=== PATIENT | female | born 1940 | race Caucasian/White ===

== ENCOUNTER 2017-01-28 19:01 | Inpatient (IN) | payer OTHER ==
[2017-01-28] MEDS ORDERED: ASPIRIN 81 MG CHEWABLE TABLETS PO ONE (20:46)
--- NOTE | 2017-01-28 20:53 | PDOC ---
History of Present Illness <Sharon Sellers - Last Filed: 01/28/17 23:55> - General History Source: Patient - History of Present Illness Initial Comments: 01/28/17 20:53 76 year c/o epigastric pain and SOB x 1 week that is progressively worsening. pain worse with movement and laying down. denies NVD, diaphoresis, chest pain, headache. PCP: none [previously [facility] Cardiology: Dr. Webb <Morenita Lutz - Last Filed: 01/29/17 06:09> - General Chief Complaint: Chest Pain Stated Complaint: SOB/CHEST PAIN Time Seen by Provider: 01/28/17 20:37 Past History <Sharon Sellers - Last Filed: 01/28/17 23:55> - Past Medical History HTN: Yes Hypercholesterolemia: Yes - Surgical History Appendectomy: Yes Cholecystectomy: Yes - Psycho/Social/Smoking Cessation Hx Anxiety: No Suicidal Ideation: No Smoking History: Current every day smoker Years of Tobacco Use: 62 (quit 1 week ago) Have you smoked in the past 12 months: Yes Number of Cigarettes Smoked Daily: 20 Information on smoking cessation initiated: No Hx Alcohol Use: No Drug/Substance Use Hx: No Substance Use Type: None Hx Substance Use Treatment: No <Morenita Lutz - Last Filed: 01/29/17 06:09> - Past Medical History Allergies/Adverse Reactions: Allergies Allergy/AdvReac Type Severity Reaction Status Date / Time No Known Drug Allergies Allergy Verified 01/28/17 20:54 NEBULIZER [place] Allergy Severe TONGUE Uncoded 01/28/17 19:13 SWELLING PEPPERS Allergy Uncoded 01/28/17 19:13 Home Medications: Ambulatory Orders Amlodipine Besylate 5 mg PO DAILY 01/28/17 Gabapentin 300 mg PO BID 01/28/17 Gemfibrozil 600 mg PO BID 01/28/17 Nebivolol HCl [Bystolic] 10 mg PO DAILY 01/28/17 Review of Systems - Review of Systems Able to Perform ROS?: Yes Is the patient limited Bulgarian proficient: No Constitutional: No: Symptoms Reported, See HPI, Chills, Diaphoresis, Fever, Loss of Appetite, Malaise, Night Sweats, Weakness, Weight Stable, Unintentional Wgt. Loss, Unexplained wgt Loss, Other Respiratory: Yes: Cough, SOB with Exertion ABD/GI: Yes: Other (epigastric pain) <Morenita Lutz - Last Filed: 01/29/17 06:09> *Physical Exam - Vital Signs Last Vital Signs Temp Pulse Resp BP Pulse Ox 98.1 F 71 24 144/92 97 01/28/17 19:07 01/28/17 19:07 01/28/17 19:07 01/28/17 19:07 01/28/17 19:07 <Sharon Sellers - Last Filed: 01/28/17 23:55> - Vital Signs Last Vital Signs Temp Pulse Resp BP Pulse Ox 98.1 F 71 24 144/92 97 01/28/17 19:07 01/28/17 19:07 01/28/17 19:07 01/28/17 19:07 01/28/17 19:07 - Physical Exam General Appearance: Yes: Appropriately Dressed Respiratory/Chest: positive: Wheezing Cardiovascular: positive: Regular Rhythm, Regular Rate. negative: Murmur Gastrointestinal/Abdominal: positive: Normal Bowel Sounds, Tender (epigastric area), Soft Extremity: positive: Normal Capillary Refill, Normal Inspection, Normal Range of Motion Integumentary: positive: Normal Color, Dry, Warm Neurologic: positive: Fully Oriented, Alert, Normal Mood/Affect <Morenita Lutz - Last Filed: 01/29/17 06:09> Heart Score/ECG Review - History History: Highly suspicious - Electrocardiogram EKG: Normal - Age Age: >/= 65 - Risk Factors Risk Factors Heart Score: Yes Hx Hypercholesterolemia, Yes Hx Hypertension, Yes Smoking History Based on the list above the patient has:: >/=3 risk factors or Hx atherosclerotic disease - Troponin Troponin: >/=3x normal limit - Score Heart Score - Total: 8 - ECG Intrepretation Rhythm: Regular Rhythm Comment:: 01/29/17 00:45 NSR: [address] abnormality <Morenita Lutz - Last Filed: 01/29/17 06:09> ED Treatment Course - LABORATORY CBC & Chemistry Diagram: 01/28/17 21:09 01/28/17 21:09 - ADDITIONAL ORDERS Additional order review: Laboratory Results 01/28/17 01/28/17 01/28/17 21:51 21:09 21:09 Sodium 138 Potassium 3.9 Chloride 105 Carbon Dioxide 24 Anion Gap 9 BUN 26 H Creatinine 1.1 H Creat Clearance w eGFR 48.55 Random Glucose 102 Calcium 8.9 Magnesium 2.6 H Total Bilirubin 0.3 AST 31 ALT 26 Alkaline Phosphatase 135 H Creatine Kinase 248 H Troponin I 2.39 H* Total Protein 7.0 Albumin 3.4 Lipase 123 Urine Color Straw Urine Appearance Clear Urine pH 5.0 Urine Protein Negative Urine Glucose (UA) Negative Urine Ketones Negative Urine Blood 1+ H Urine Nitrite Negative Urine Bilirubin Negative Urine Urobilinogen Negative Ur Leukocyte Esterase 2+ H Urine RBC 1 Urine WBC 12 Ur Epithelial Cells Rare Urine Mucus Rare 01/28/17 21:09 RBC 3.64 MCV 90.1 MCHC 33.4 RDW 14.1 MPV 9.4 Neutrophils % 67.9 Lymphocytes % 21.3 Monocytes % 6.4 Eosinophils % 3.4 Basophils % 1.0 - Medications Given in the ED: ED Medications Discontinued Medications Generic Name Dose Route Start Last Admin Trade Name Freq PRN Reason Stop Dose Admin Albuterol Sulfate 1 amp 01/28/17 21:10 01/28/17 21:51 Ventolin 0.083% Nebulizer Soln - NEB 01/28/17 21:11 1 amp ONCE ONE Administration Aspirin 162 mg 01/28/17 20:46 01/28/17 21:25 Asa - PO 01/28/17 20:47 162 mg ONCE ONE Administration Famotidine/Sodium Chloride 50 mls @ 100 mls/hr 01/28/17 21:10 01/28/17 21:51 Pepcid 20 Mg Premixed Ivpb - IVPB 01/28/17 21:39 100 mls/hr ONCE ONE Administration <Sharon Sellers - Last Filed: 01/28/17 23:55> - LABORATORY CBC & Chemistry Diagram: 01/28/17 21:09 01/28/17 21:09 <Morenita Lutz - Last Filed: 01/29/17 06:09> Progress Note - Progress Note Progress Note: A: chest pain/ epigastric pain/ NSTEMI P: cbc cmp troponin UA EKG. cardiology consult <Morenita Lutz - Last Filed: 01/29/17 06:09> Medical Decision Making - Medical Decision Making 01/28/17 22:[address] Teddy Castellon. [phone] 01/28/17 23:19 Placed a second call to Dr. Teddy Castellon. [phone] 01/28/17 23:43 Placed a third call to Dr. Teddy Castellon. [phone] <Sharon Sellers - Last Filed: 01/28/17 23:55> - Critical Care Time Total Critical Care Time (minutes): 90 Critical Care Statement: The care of this patient involved high complexity decision making to prevent further life threatening deterioration of the patient 's condition and/or to evalute & treat vital organ system(s) failure or risk of failure. - Medical Decision Making 01/29/17 00:17 Patient is nauseous with agitation, diaphoretic, flushed, with epigastric pain worsening. Dr. Dave pagesoraya. Dr. lawanda dong 01/29/17 00:[address] Chen. recommends Heparin IV drip, Nitroglycerin IV drip lipitor 80mg and plavix 300mg. [employer] Edwiny in ICU contacted. signed out fo rICU admission. 01/29/17 00:41 Dr. Lnidsay dong. 01/29/17 00:55 Dr. castellon recommends IV lopressor 5 mg x1, then lopressor 25 BID. and trend troponin Patient to be admitted to ICU for further management of care. patient signed out to Dr. Be <Morenita Lutz - Last Filed: 01/29/17 06:09> *DC/Admit/Observation/Transfer <Sharon Sellers - Last Filed: 01/28/17 23:55> - Discharge Dispostion Admit: Yes <Morenita Lutz - Last Filed: 01/29/17 06:09> Diagnosis at time of Disposition: NSTEMI (non-ST elevated myocardial infarction), Cardiomegaly Hypertension Qualifiers: Hypertension type: essential hypertension Qualified Code(s): I10 - Essential ( primary) hypertension - Discharge Dispostion Condition at time of disposition: Fair
[2017-01-28] MEDS ORDERED: FAMOTIDINE 20 MG/50 ML IVPB 50 ML IVPB ONE ×2 (21:10→21:33)
[2017-01-28] MEDS ORDERED: ALBUTEROL SO4 0.083% IH SOL 2.5 MG/3 ML VIAL.NEB. NEB ONE (21:10)
[2017-01-28 21:24] LABS: EOSINOPHIL 3.4 % (0-4.5); MCH 30.1 pg (25.7-33.7); MCHC 33.4 g/dl (32.0-36.0); MEAN CELL VOLUME 90.1 fl (80-96); MEAN PLT VOLUME 9.4 fl (7.5-11.1); NEUTROPHILS 67.9 % (42.8-82.8); PLATELET COUNT 236 K/MM3 (134-434); RDW 14.1 % (11.6-15.6); WHITE BLOOD COUNT 7.9 K/mm3 (4.0-10.0)
[2017-01-28] MEDS ORDERED: ASPIRIN 81 MG CHEWABLE TABLETS ONE (21:24)
[2017-01-28 21:47] LABS: INR 1.05 (0.82-1.09); PROTHROMBIN TIME (PATIENT) 11.6 SEC (9.98-11.88)
[2017-01-28 21:58] LABS: URINE APPEARANCE CLEAR; URINE BILIRUBIN NEGATIVE (NEGATIVE); URINE BLOOD 1+ (NEGATIVE); URINE COLOR STRAW; URINE GLUCOSE (UA) NEGATIVE (NEGATIVE); URINE KETONE NEGATIVE (NEGATIVE); URINE NITRITE NEGATIVE (NEGATIVE); URINE PROTEIN NEGATIVE (NEGATIVE); URINE UROBILINOGEN NEGATIVE mg/dL (0.2-1.0)
[2017-01-28 21:59] LABS: URINE LEUK ESTERASE 2+ (NEGATIVE)
[2017-01-28 22:01] LABS: URINE MUCUS RARE; URINE RBC 1 /hpf (0-3); URINE WBC 12 /hpf (3-5)
[2017-01-28 22:03] LABS: ALBUMIN 3.4 g/dl (3.4-5.0); ANION GAP 9 (8-16); BILIRUBIN,TOTAL 0.3 mg/dL (0.2-1.0); CALCIUM 8.9 mg/dL (8.5-10.1); CO2 24 mmol/L (21-32); CREATININE 1.1 mg/dL (0.55-1.02); GLUCOSE,RANDOM 102 mg/dL (74-106); SGPT/ALT 26 U/L (12-78)
[2017-01-28 22:19] LABS: ALK PHOS 135 U/L (45-117); CPK 248 IU/L (26-192)
[2017-01-28 22:43] LABS: MAGNESIUM 2.6 mg/dL (1.8-2.4); SGOT/AST 31 U/L (15-37); TROPONIN I 2.39 ng/ml (0.00-0.05)
[2017-01-29] MEDS ORDERED: ONDANSETRON 4 MG/2 ML VIAL IVPUSH ONE (00:10)
[2017-01-29] MEDS ORDERED: ONDANSETRON 4 MG/2 ML VIAL ONE (00:13)
[2017-01-29] MEDS ORDERED: HEPARIN NA (PORCINE) 5,000 UNITS/ML 1ML VIAL IVPUSH PRN ×2 (00:24)
[2017-01-29] MEDS ORDERED: ATORVASTATIN CA 80 MG TABLET (FP) PO ONE (00:24)
[2017-01-29] MEDS ORDERED: CLOPIDOGREL BISULFATE 300 MG TABLET PO ONE ×3 (00:24→08:59)
[2017-01-29] MEDS ORDERED: HEPARIN - 25,000 UNIT in SODIUM CHLORIDE 495 ML IV SCH (00:30)
[2017-01-29] MEDS ORDERED: NITROGLYCERIN 25MG/D5W 250ML 250 ML IVPB SCH (00:30)
--- NOTE | 2017-01-29 00:34 | PDOC ---
*Physical Exam - Vital Signs Last Vital Signs Temp Pulse Resp BP Pulse Ox 98.1 F 71 24 144/92 97 01/28/17 19:07 01/28/17 19:07 01/28/17 19:07 01/28/17 19:07 01/28/17 19:07 ED Treatment Course - LABORATORY CBC & Chemistry Diagram: 01/28/17 21:09 01/28/17 21:09 - ADDITIONAL ORDERS Additional order review: Laboratory Results 01/28/17 01/28/17 01/28/17 21:51 21:09 21:09 Sodium 138 Potassium 3.9 Chloride 105 Carbon Dioxide 24 Anion Gap 9 BUN 26 H Creatinine 1.1 H Creat Clearance w eGFR 48.55 Random Glucose 102 Calcium 8.9 Magnesium 2.6 H Total Bilirubin 0.3 AST 31 ALT 26 Alkaline Phosphatase 135 H Creatine Kinase 248 H Troponin I 2.39 H* Total Protein 7.0 Albumin 3.4 Lipase 123 Urine Color Straw Urine Appearance Clear Urine pH 5.0 Urine Protein Negative Urine Glucose (UA) Negative Urine Ketones Negative Urine Blood 1+ H Urine Nitrite Negative Urine Bilirubin Negative Urine Urobilinogen Negative Ur Leukocyte Esterase 2+ H Urine RBC 1 Urine WBC 12 Ur Epithelial Cells Rare Urine Mucus Rare 01/28/17 21:09 RBC 3.64 MCV 90.1 MCHC 33.4 RDW 14.1 MPV 9.4 Neutrophils % 67.9 Lymphocytes % 21.3 Monocytes % 6.4 Eosinophils % 3.4 Basophils % 1.0 - Medications Given in the ED: ED Medications Discontinued Medications Generic Name Dose Route Start Last Admin Trade Name Ly PRN Reason Stop Dose Admin Albuterol Sulfate 1 amp 01/28/17 21:10 01/28/17 21:51 Ventolin 0.083% Nebulizer Soln - NEB 01/28/17 21:11 1 amp ONCE ONE Administration Aspirin 162 mg 01/28/17 20:46 01/28/17 21:25 Asa - PO 01/28/17 20:47 162 mg ONCE ONE Administration Famotidine/Sodium Chloride 50 mls @ 100 mls/hr 01/28/17 21:10 01/28/17 21:51 Pepcid 20 Mg Premixed Ivpb - IVPB 01/28/17 21:39 100 mls/hr ONCE ONE Administration Ondansetron HCl 4 mg 01/29/17 00:10 01/29/17 00:15 Zofran Injection IVPUSH 01/29/17 00:11 4 mg ONCE ONE Administration Medical Decision Making - Critical Care Time Total Critical Care Time (minutes): 60 Critical Care Statement: The care of this patient involved high complexity decision making to prevent further life threatening deterioration of the patient 's condition and/or to evalute & treat vital organ system(s) failure or risk of failure. - Medical Decision Making 01/29/17 00:32 76-year-old female presents with dyspnea, shortness of breath last week. However, today her dyspnea became worse and she developed epigastric pain. She now has shortness of breath and nausea. Her troponin came back positive at 2.39 and the case was discussed with Dr. Miles Chen. The patient will be placed in the ICU and is receiving IV heparin, Plavix, Lipitor *DC/Admit/Observation/Transfer Diagnosis at time of Disposition: Non-ST elevation (NSTEMI) myocardial infarction, Cardiomegaly Hypertension Qualifiers: Hypertension type: essential hypertension Qualified Code(s): I10 - Essential ( primary) hypertension - Discharge Dispostion Condition at time of disposition: Fair Admit: Yes
[2017-01-29] MEDS ORDERED: HEPARIN NA (PORCINE) 5,000 UNITS/ML 1ML VIAL ONE (00:40)
[2017-01-29] MEDS ORDERED: HEPARIN INFUSION - 500 ML IVPB ONE (00:40)
[2017-01-29] MEDS ORDERED: NITROGLYCERIN 25MG/D5W 250ML 250 ML IVPB ONE (00:40)
[2017-01-29] MEDS ORDERED: CLOPIDOGREL BISULFATE 300 MG TABLET ONE (00:41)
[2017-01-29] MEDS ORDERED: ATORVASTATIN CA 80 MG TABLET (FP) ONE (00:42)
--- NOTE | 2017-01-29 00:49 | PN ---
Teaching Attending Note Name of Resident: Suzette Gomes ATTENDING PHYSICIAN STATEMENT I saw and evaluated the patient. I reviewed the resident's note and discussed the case with the resident. I agree with the resident's findings and plan as documented. SUBJECTIVE: 76 F with pmhx of HTN, HLD and current smoker, who presents with epigastric pain and shortness of breath that is one week in duration. States that she was on vacation at the [place] 1 week ago when she had intermittent epigastric pain, not relieved by anything. Also had associated shortness of breath on exertion. OBJECTIVE: Physical: VS: Vital Signs Period Temp Pulse Resp BP Sys/[place] Pulse Ox Last 24 Hr 98.1 F 71 24 144/92 97 GEN: NAD, Resting in bed, able to speak full sentences HEENT: NCAT, PERRL, Throat without erythema or exudates CARD: RRR S1, S2 RESP: Mild Expiratory Wheezing bilateral ABD: BSX4, NTD to palpation EXT: - C/C/E CBCD WBC 7.9 K/mm3 (4.0-10.0) 01/28/17 21:09 RBC 3.64 M/mm3 (3.60-5.2) 01/28/17 21:09 Hgb 11.0 GM/dL (10.7-15.3) 01/28/17 21:09 Hct 32.8 % (32.4-45.2) 01/28/17 21:09 MCV 90.1 fl (80-96) 01/28/17 21:09 MCHC 33.4 g/dl (32.0-36.0) 01/28/17 21:09 RDW 14.1 % (11.6-15.6) 01/28/17 21:09 Plt Count 236 K/MM3 (134-434) 01/28/17 21:09 MPV 9.4 fl (7.5-11.1) 01/28/17 21:09 CMP Sodium 138 mmol/L (136-145) 01/28/17 21:09 Potassium 3.9 mmol/L (3.5-5.1) 01/28/17 21:09 Chloride 105 mmol/L (98-107) 01/28/17 21:09 Carbon Dioxide 24 mmol/L (21-32) 01/28/17 21:09 Anion Gap 9 (8-16) 01/28/17 21:09 BUN 26 mg/dL (7-18) H 01/28/17 21:09 Creatinine 1.1 mg/dL (0.55-1.02) H 01/28/17 21:09 Creat Clearance w eGFR 48.55 (>60) 01/28/17 21:09 Random Glucose 102 mg/dL (74-106) 01/28/17 21:09 Calcium 8.9 mg/dL (8.5-10.1) 01/28/17 21:09 Total Bilirubin 0.3 mg/dL (0.2-1.0) 01/28/17 21:09 AST 31 U/L (15-37) 01/28/17 21:09 ALT 26 U/L (12-78) 01/28/17 21:09 Alkaline Phosphatase 135 U/L (45-117) H 01/28/17 21:09 Total Protein 7.0 g/dl (6.4-8.2) 01/28/17 21:09 Albumin 3.4 g/dl (3.4-5.0) 01/28/17 21:09 CARDIAC ENZYMES Creatine Kinase 248 IU/L (26-192) H 01/28/17 21:09 Troponin I 2.39 ng/ml (0.00-0.05) H* 01/28/17 21:09 CXR: Cardiomegaly, pulm. venous congestion EKG: NSR 66, Nonspecific St-t changes Home Medications Medication Instructions Recorded Amlodipine Besylate 5 mg PO DAILY 01/28/17 Gabapentin 300 mg PO BID 01/28/17 Gemfibrozil 600 mg PO BID 01/28/17 Nebivolol HCl [Bystolic] 10 mg PO DAILY 01/28/17 HEART 7, TIMI3 EKG: NSR, Non-specific St-T changes ASSESSMENT AND PLAN: 76 F with pmhx of HTN, HLD, current smoker who presented with epigastric pain found to have a NSTEMI 1.) NSTEMI - ASA, Plavix, Hep gtt - 02 2L NC - Trend Trop/EKG - Metoprolol 25mg BID - Cardio consulted-appreciate reccs - Morphine/Nitro prn CP - Tele 2.) CHF - Echo - Hold off Lasix for now as BP is tenous - Strict I/O - NA restric/Fluid Restrict 3.) HTN - Metoprolol 3.) HLD - C/W Gemfibrozil- pt. cannot have Statin as per her due to allery - Chk. Lipid panel 5.) Dvt ppx - HEp gtt Place in ICU -CC Time 45 minutes
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
[2017-01-29] MEDS ORDERED: METOPROLOL TARTRATE 25 MG TABLET (FP) PO ONE (01:15)
[2017-01-29 01:27] LABS: TROPONIN I 2.47 ng/ml (0.00-0.05)
[2017-01-29] MEDS ORDERED: METOPROLOL TARTRATE 25 MG TABLET (FP) ONE (01:34)
--- NOTE | 2017-01-29 01:41 | HP ---
CHIEF COMPLAINT: epigastric pain x 7 days PCP: [facility] [employer] Treatment Operator: Chaundry HISTORY OF PRESENT ILLNESS: 76yo F with PMH of HTN, hypercholesterolemia, current smoker presents with epigastric pain x 7 days. Pt reports being away on vacation when the epigastric pain began last Friday. Pt believed pain to be heartburn so she took Gaviscon, which did not relieve the pain. Pain was 7/10 at its peak, squeezing/tight, non-radiating. Pt also c/o SOB with minimal exertion. Pt reported to ED with increased epigastric pain. ER course was notable for: (1) Troponins elevated (2) EKG (3) Heparin drip (4) Nitroglycerin drip (5) Aspirin 162 mg (6) Metoprolol Tartrate 25 mg (7) Clopidogrel Bisulfate 300 mg Recent Travel: [place] for 1 week PAST MEDICAL HISTORY: HTN, hypercholesterolemia PAST SURGICAL HISTORY: 2 sections, appendectomy, cholecystectomy Social History: Smokin ppd since age 18, 58 pack yr Alcohol: wine rarely, on holidays Drugs: none Family History: Family hx of afib. Father of colon cancer at age 65. Allergies Statins per pt. NEBULIZER [place] Allergy (Severe, Uncoded 01/28/17 19:13) TONGUE SWELLING PT DOES NOT RECALL NAME, REPORTS TONGUE SWELLING. PEPPERS Allergy (Uncoded 01/28/17 19:13) HOME MEDICATIONS: Home Medications Medication Instructions Recorded Amlodipine Besylate 5 mg PO DAILY 01/28/17 Gabapentin 300 mg PO BID 01/28/17 Gemfibrozil 600 mg PO BID 01/28/17 Nebivolol HCl [Bystolic] 10 mg PO DAILY 01/28/17 REVIEW OF SYSTEMS CONSTITUTIONAL: Absent: fever, chills, diaphoresis, generalized weakness, malaise, loss of appetite, weight change HEENT: Absent: rhinorrhea, nasal congestion CARDIOVASCULAR: Absent: chest pain, syncope, palpitations, irregular heart rate, lightheadedness , peripheral edema RESPIRATORY: (+) SOB with exertion Absent: cough, dyspnea with exertion, orthopnea, wheezing, stridor GASTROINTESTINAL: (+) epigastric pain Absent: abdominal distension, nausea, vomiting, diarrhea, constipation, melena, hematochezia MUSCULOSKELETAL: Absent: myalgia, arthralgia, joint swelling, back pain, neck pain SKIN: Absent: rash, itching, pallor HEMATOLOGIC/IMMUNOLOGIC: Absent: easy bleeding, easy bruising, lymphadenopathy, frequent infections ENDOCRINE: Absent: unexplained weight gain, unexplained weight loss, heat intolerance, cold intolerance NEUROLOGIC: Absent: focal weakness or paresthesias, dizziness, unsteady gait, seizure, mental status changes, bladder or bowel incontinence PHYSICAL EXAMINATION Vital Signs - 24 hr 01/28/17 01/29/17 01/29/17 19:07 00:45 01:10 Temperature 98.1 F Pulse Rate 71 Pulse Rate [ 66 65 Apical] Respiratory 24 16 18 Rate Blood Pressure 144/92 Blood Pressure 162/112 139/63 [Left Arm] O2 Sat by Pulse 97 100 94 L Oximetry (%) 01/29/17 01:58 Temperature 97.6 F Pulse Rate 65 Pulse Rate [ Apical] Respiratory 22 Rate Blood Pressure 126/46 Blood Pressure [Left Arm] O2 Sat by Pulse 96 Oximetry (%) CBCD WBC 7.9 K/mm3 (4.0-10.0) 01/28/17 21:09 RBC 3.64 M/mm3 (3.60-5.2) 01/28/17 21:09 Hgb 11.0 GM/dL (10.7-15.3) 01/28/17 21:09 Hct 32.8 % (32.4-45.2) 01/28/17 21:09 MCV 90.1 fl (80-96) 01/28/17 21:09 MCHC 33.4 g/dl (32.0-36.0) 01/28/17 21:09 RDW 14.1 % (11.6-15.6) 01/28/17 21:09 Plt Count 236 K/MM3 (134-434) 01/28/17 21:09 MPV 9.4 fl (7.5-11.1) 01/28/17 21:09 CMP Sodium 138 mmol/L (136-145) 01/28/17 21:09 Potassium 3.9 mmol/L (3.5-5.1) 01/28/17 21:09 Chloride 105 mmol/L (98-107) 01/28/17 21:09 Carbon Dioxide 24 mmol/L (21-32) 01/28/17 21:09 Anion Gap 9 (8-16) 01/28/17 21:09 BUN 26 mg/dL (7-18) H 01/28/17 21:09 Creatinine 1.1 mg/dL (0.55-1.02) H 01/28/17 21:09 Creat Clearance w eGFR 48.55 (>60) 01/28/17 21:09 Calcium 8.9 mg/dL (8.5-10.1) 01/28/17 21:09 Total Bilirubin 0.3 mg/dL (0.2-1.0) 01/28/17 21:09 AST 31 U/L (15-37) 01/28/17 21:09 ALT 26 U/L (12-78) 01/28/17 21:09 Alkaline Phosphatase 135 U/L (45-117) H 01/28/17 21:09 Total Protein 7.0 g/dl (6.4-8.2) 01/28/17 21:09 Albumin 3.4 g/dl (3.4-5.0) 01/28/17 21:09 Troponin, BNP 01/28/17 01/28/17 01/29/17 21:09 21:09 00:23 Troponin I 2.39 H* 2.47 H* B-Natriuretic Peptide 7244.33 H GENERAL: Awake, alert, and fully oriented, in no acute distress. HEAD: Normal with no signs of trauma. EYES: Pupils equal, round and reactive to light, sclera anicteric, conjunctiva clear. No lid lag. EARS, NOSE, THROAT: Ears normal, oropharynx clear without exudates. NECK: supple without lymphadenopathy, no JVD or masses. LUNGS: Breath sounds equal, clear to auscultation bilaterally. No wheezes, and no crackles. No accessory muscle use. HEART: Regular rate and rhythm, normal S1 and S2 without murmur, rub or gallop. ABDOMEN: Soft, nontender, not distended, normoactive bowel sounds, no guarding, no rebound, no masses. No hepatomegaly or splenomegaly. LOWER EXTREMITIES: 2+ pulses, warm, well-perfused. No calf tenderness. No peripheral edema. NEUROLOGICAL: Cranial nerves II-XII intact. Normal speech. PSYCHIATRIC: Cooperative. Good eye contact. Appropriate mood and affect. SKIN: Warm, dry, normal turgor, no rashes or lesions noted, normal capillary refill. IMAGIN01/28/[address] changes. 01/28/17 CXR reveals moderate cardiomegaly, mild pulmonary congestion, and minimal pleural effusion. 01/28/17 Duplex U/S negative for DVT. ASSESSMENT/PLAN: 76yo F with PMH of HTN, hypercholesterolemia, current smoker adm ICU for NSTEMI. (1) NSTEMI - clinically stable. HEART Score of 8. - cont. to trend Troponins q6h to peak - f/u echo - Cardiology Consult - cont. aspirin - cont. plavix - cont. heparin - cont. metoprolol - cont. O2 as needed (2) CHF - may be acute on chronic - restrict fluids - consider Lasix - monitor Creatinine (3) HTN - cont. Metoprolol (4) hypercholesterolemia - f/u lipid panel - cont Gemfibrozil (5) FEN - npo (6) Prophylaxis - SCDs for DVT prophylaxis (7) Disposition - adm to ICU Visit type - Emergency Visit Emergency Visit: Yes ED Registration Date: 01/29/17 Care time: The patient presented to the Emergency Department on the above date and was hospitalized for further evaluation of their emergent condition. - New Patient This patient is new to me today: Yes Date on this admission: 01/29/17 - Critical Care Critical Care patient: Yes Total Critical Care Time (in minutes): 40 Critical Care Statement: The care of this patient involved high complexity decision making to prevent further life threatening deterioration of the patient 's condition and/or to evalute & treat vital organ system(s) failure or risk of failure.
[2017-01-29 02:24] VITALS: BMI 40.0
--- NOTE | 2017-01-29 08:13 | PN ---
Physical Exam: SUBJECTIVE: 76 year old female with a past medical history of hypertension, hyperlipidemia, and smoking presented to the ED yesterday after 7 days of epigastric pain 8/10 in severity and shortness of breath at rest. She reports that the epigastric pain started when she was on vacation in October at the [place] after she finished smoking. She was unable to reach her PCP by phone. She believed at first that she was having heartburn, for which she took Gaviscon (an OTC antacid ) without any relief. When she arrived at the ED yesterday, she was found to have an NSTEMI with elevated trops (2.39) and an EKG with nonspecific changes. A chest xray was done, showing cardiomegaly, pulmonary changes, and minimal pleural effusion. In the ED, she was given heparin, metoprolol, aspirin, plavix , and transferred to the ICU for management of NSTEMI. OBJECTIVE: Vital Signs Period Temp Pulse Resp BP Sys/[place] Pulse Ox Last 24 Hr 97.6 F-98.6 F 50-65 18-22 122-147/46-65 94-96 GENERAL: The patient is awake, alert, and fully oriented, in no acute distress. HEAD: Normal with no signs of trauma. EYES: PERRL, extraocular movements intact, sclera anicteric, conjunctiva clear. No ptosis. ENT: Ears normal, nares patent, oropharynx clear without exudates, moist mucous membranes. NECK: Trachea midline, full range of motion, supple. LUNGS: Breath sounds equal, clear to auscultation bilaterally, no wheezes, no crackles, no accessory muscle use. HEART: Regular rate and rhythm, S1, S2 without murmur, rub or gallop. ABDOMEN: Soft, mild tenderness to palpation in the epigastrum, nondistended, normoactive bowel sounds, no guarding, no rebound, no hepatosplenomegaly, no masses. EXTREMITIES: 2+ pulses, warm, well-perfused, no edema. NEUROLOGICAL: Cranial nerves II through XII grossly intact. Normal speech, gait not observed. PSYCH: Normal mood, normal affect. SKIN: Warm, dry, normal turgor, no rashes or lesions noted Active Medications Generic Name Dose Route Start Last Admin Trade Name Freq PRN Reason Stop Dose Admin Chlorhexidine Gluconate 1 applic 01/29/17 22:00 Hibiclens For Decolonization - TP HS MAKAYLA Gabapentin 300 mg 01/29/17 10:00 Neurontin - PO BID MAKAYLA Gemfibrozil 600 mg 01/29/17 10:00 Lopid - PO BID MAKAYLA Heparin Sodium (Porcine) 1,000 unit 01/29/17 00:24 Heparin - IVPUSH PRN PRN Heparin Heparin Sodium (Porcine) 5,000 unit 01/29/17 00:24 Heparin - IVPUSH PRN PRN Heparin Heparin Sodium (Porcine) 25, 500 mls @ 20 mls/hr 01/29/17 00:30 01/29/17 01:04 000 unit/ Sodium Chloride IV 20 mls/hr TITR MAKAYLA Administration Protocol 1,000 UNIT/HR Nitroglycerin/Dextrose 250 mls @ 6 mls/hr 01/29/17 00:30 01/29/17 01:03 Nitroglycerin 25mg/D5w 250ml IVPB 6 mls/hr TITR MAKAYLA Administration 10 MCG/MIN Famotidine/Sodium Chloride 50 mls @ 100 mls/hr 01/29/17 10:00 Pepcid 20 Mg Premixed Ivpb - IVPB BID MAKAYLA Metoprolol Tartrate 25 mg 01/29/17 10:00 Lopressor - PO BID MAKAYLA Mupirocin 1 applic 01/29/17 10:00 Bactroban Ointment (For Decolonization) - NS 02/03/17 09:59 BID MAKAYLA Potassium Chloride 20 meq 01/29/17 08:00 K-Dur - PO 01/29/17 08:01 ONCE ONE Imaging: CXR (01/28): moderate cardiomegaly, mild pulmonary venous congestion, minimal bilateral pleural effusion EKG (01/29): sinus bradycardia, incomplete left bundle branch block ASSESSMENT/PLAN: 76 year old female with a past medical history of HTN, HLD, [id number] smoking hx being monitored in the ICU s/p NSTEMI Neuro: neurologically intact with no acute abnormalities Cardiovascular: pt with acute NSTEMI and hx of HTN, HLD -Spoke to Dr. Castellon who is transferring pt to [place] for cardiac catheterization this afternoon -continue heparin drip -continue metoprolol 25mg PO BID -continue nitroglycerin drip -restart aspirin and plavix before transfer -continue gemfibrozil Pulmonary: SOB, CXR showed pulmonary congestion -give O2 by nasal canula FEN: -pts potassium 3.9 - ideally should be >4.0 in cardiac patient -give 20meq KCl PO once Proph: -continue heparin drip -continue famotidine 20mg IV Dispo: -monitor in ICU until transfer to [place] for cardiac catheterization -pending transfer this afternoon Problem List - Problems (1) Hyperlipemia Code(s): E78.5 - HYPERLIPIDEMIA, UNSPECIFIED Qualifiers: Hyperlipidemia type: pure hypercholesterolemia Qualified Code(s): E78.00 - Pure hypercholesterolemia, unspecified; E78.0 - Pure hypercholesterolemia (2) Hypertension Code(s): I10 - ESSENTIAL (PRIMARY) HYPERTENSION Qualifiers: Hypertension type: essential hypertension Qualified Code(s): I10 - Essential (primary) hypertension (3) NSTEMI (non-ST elevated myocardial infarction) Code(s): I21.4 - NON-ST ELEVATION (NSTEMI) MYOCARDIAL INFARCTION Visit type - Emergency Visit Emergency Visit: No - New Patient This patient is new to me today: Yes Date on this admission: 01/29/17 - Critical Care Critical Care patient: Yes Total Critical Care Time (in minutes): 40 Critical Care Statement: The care of this patient involved high complexity decision making to prevent further life threatening deterioration of the patient 's condition and/or to evalute & treat vital organ system(s) failure or risk of failure.
[2017-01-29 08:14] LABS: MCH 30.1 pg (25.7-33.7); MCHC 33.5 g/dl (32.0-36.0); MEAN CELL VOLUME 89.9 fl (80-96); PLATELET COUNT 205 K/MM3 (134-434); RDW 13.6 % (11.6-15.6); WHITE BLOOD COUNT 7.5 K/mm3 (4.0-10.0)
[2017-01-29] MEDS ORDERED: POTASSIUM CHLORIDE TABS 20 MEQ TABLET.ER (FP) PO ONE (08:15)
[2017-01-29 08:30] LABS: INR 1.12 (0.82-1.09); PROTHROMBIN TIME (PATIENT) 12.4 SEC (9.98-11.88)
[2017-01-29 09:00] LABS: ACTIVATED PTT 78.4 SECONDS (26.9-34.4)
[2017-01-29] MEDS ORDERED: ASPIRIN COATED 81 MG TABLET.EC ONE (09:11)
[2017-01-29 09:20] LABS: ANION GAP 10 (8-16); CALCIUM 8.4 mg/dL (8.5-10.1); CHOLESTEROL 162 mg/dL (50-200); CO2 22 mmol/L (21-32); CREATININE 0.9 mg/dL (0.55-1.02); GLUCOSE,RANDOM 126 mg/dL (74-106); LDL CHOLESTEROL (ONLY SJRH) 88 mg/dL (5-100); MAGNESIUM 2.6 mg/dL (1.8-2.4)
[2017-01-29 09:23] LABS: CPK 213 IU/L (26-192)
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
[2017-01-29 09:26] LABS: TROPONIN I 2.27 ng/ml (0.00-0.05)
[2017-01-29] MEDS ORDERED: ATORVASTATIN CA 20 MG TABLET (FP) PO ONE (09:45)
[2017-01-29] MEDS ORDERED: FAMOTIDINE 20 MG/50 ML IVPB 50 ML IVPB SCH (10:00)
[2017-01-29] MEDS ORDERED: GEMFIBROZIL 600 MG TABLET (FP) PO SCH (10:00)
[2017-01-29] MEDS ORDERED: GABAPENTIN 300 MG CAPSULE (FP) PO SCH (10:00)
[2017-01-29] MEDS ORDERED: ASPIRIN COATED 81 MG TABLET.EC PO SCH (10:00)
[2017-01-29] MEDS ORDERED: METOPROLOL TARTRATE 25 MG TABLET (FP) PO SCH (10:00)
[2017-01-29] MEDS ORDERED: MUPIROCIN 2% TOPICAL OINTMENT FOR DECOLONIZATION NS SCH (10:00)
[2017-01-29 10:39] VITALS: BP 142/66; PULSE 58; TEMP 98.4
--- NOTE | 2017-01-29 13:01 | EKG ---
Test Reason : Blood Pressure : / mmHG Vent. Rate : 066 BPM Atrial Rate : 066 BPM P-R Int : 196 ms QRS Dur : 124 ms QT Int : 434 ms P-R-T Axes : 000 -01 042 degrees QTc Int : 454 ms POOR DATA QUALITY, INTERPRETATION MAY BE ADVERSELY AFFECTED NORMAL SINUS RHYTHM NON-SPECIFIC INTRA-VENTRICULAR CONDUCTION DELAY NONSPECIFIC ST ABNORMALITY ABNORMAL ECG WHEN COMPARED WITH ECG OF 28-JAN-2017 19:20, NO SIGNIFICANT CHANGE WAS FOUND Confirmed by BRIT BLANCO MD ([id number]) on 01/29/2017 1:00:50 PM Referred By: Confirmed By:BRIT BLANCO MD
--- NOTE | 2017-01-29 13:06 | EKG ---
Test Reason : Blood Pressure : / mmHG Vent. Rate : 057 BPM Atrial Rate : 057 BPM P-R Int : 204 ms QRS Dur : 118 ms QT Int : 466 ms P-R-T Axes : 042 -13 040 degrees QTc Int : 453 ms SINUS BRADYCARDIA INCOMPLETE LEFT BUNDLE BRANCH BLOCK BORDERLINE ECG WHEN COMPARED WITH ECG OF 29-JAN-2017 00:18, NO SIGNIFICANT CHANGE WAS FOUND Confirmed by BRIT BLANCO MD ([id number]) on 01/29/2017 1:05:56 PM Referred By: Leia REYES Confirmed By:BRIT BLANCO MD
--- NOTE | 2017-01-29 13:21 | EKG ---
Test Reason : Blood Pressure : / mmHG Vent. Rate : 068 BPM Atrial Rate : 068 BPM P-R Int : 200 ms QRS Dur : 108 ms QT Int : 408 ms P-R-T Axes : 048 001 060 degrees QTc Int : 433 ms NORMAL SINUS RHYTHM WITH SINUS ARRHYTHMIA CANNOT RULE OUT INFERIOR INFARCT , AGE UNDETERMINED ABNORMAL ECG WHEN COMPARED WITH ECG OF 11-JUL-2014 15:04, ST NOW DEPRESSED IN ANTERIOR LEADS NONSPECIFIC T WAVE ABNORMALITY NOW EVIDENT IN INFERIOR LEADS NONSPECIFIC T WAVE ABNORMALITY NOW EVIDENT IN LATERAL LEADS Confirmed by BELLA HILL, BRIT ([id number]) on 01/29/2017 1:20:41 PM Referred By: Confirmed By:BRIT BLANCO MD
--- NOTE | 2017-01-29 18:11 | PN ---
Teaching Attending Note Name of Resident: Krysta Lincoln ATTENDING PHYSICIAN STATEMENT I saw and evaluated the patient. I reviewed the resident's note and discussed the case with the resident. I agree with the resident's findings and plan as documented. SUBJECTIVE: OBJECTIVE: Vital Signs Period Temp Pulse Resp BP Sys/Bar[place] Pulse Ox Last 24 Hr 97.6 F-98.6 F 50-71 16-24 122-162/46-112 94-100 ASSESSMENT AND PLAN:
[2017-01-29] MEDS ORDERED: CHLORHEXIDINE GLUCONATE 4% CLEANSER FOR DECOLONIZATION TP SCH (22:00)
== END 2017-01-29 11:25 | disposition short-term general hospital (02) | DRG 280 ==
LOC: JER 19:01 → JERBED 01-29 00:45 → JICU 01-29 02:00
PROVIDERS: ADMIT Internal Medicine; ATTEND Internal Medicine
DX: I21.4 Non-ST elevation (NSTEMI) myocardial infarction (principal); I50.33 Acute on chronic diastolic (congestive) heart failure; R07.89 Other chest pain; I11.0 Hypertensive heart disease with heart failure; I25.10 Atherosclerotic heart disease of native coronary artery without angina pectoris; F17.210 Nicotine dependence, cigarettes, uncomplicated; E78.5 Hyperlipidemia, unspecified
CPT/HCPCS: 36415; 71020-TC; 80048; 80053; 80061; 81003; 81015; 82553; 83036; 83690; 83721; 83735; 83880; 84484; 85025; 85027; 85610; 85730; 86850; 86900; 86901; 93005; 93010; 93306-TC; 93970-TC; 99285-25; J1644